=== PATIENT | male | born 1990 | race Caucasian/White ===

== ENCOUNTER 2016-07-19 17:59 | Emergency (ER) | payer OTHER ==
[~2016-07-19] VITALS: Ht 177.8 cm; Wt 122.5 kg
[~2016-07-19 17:59] MED LIST: ADV250INH INH; LEVA12INH INH; MOME50SP; XOPEAER INH
[2016-07-19] MEDS ORDERED: DEXT30SUSP PO (18:26)
[2016-07-19] MEDS ORDERED: IPRATROPIUM 0.5MG/ALBUTEROL 2.5MG INH SOL UD 3ML (DUONEB)(J7620) NEB ONE (19:00)
[2016-07-19] MEDS ORDERED: ALBUTEROL SULFATE 2.5 MG/0.5 ML INH NEB SOLN INH ONE (19:00)
[2016-07-19] MEDS ORDERED: NAPROXEN 250 MG TAB PO ONE (19:00)
[2016-07-19] MEDS ORDERED: NAPR500T PO (20:01)
[2016-07-19] MEDS ORDERED: ALBU17IN2 INH (20:01)
[2016-07-19 20:43] VITALS: BP 103/57
== END 2016-07-19 20:46 | disposition home or self-care (01) ==
LOC: M ED 19:00
DX: J20.9 Acute bronchitis, unspecified (principal); B34.9 Viral infection, unspecified; Z88.0 Allergy status to penicillin; Z88.1 Allergy status to other antibiotic agents; Z88.2 Allergy status to sulfonamides; Z91.011 Allergy to milk products

== ENCOUNTER 2016-11-30 18:33 | Emergency (ER) | payer OTHER ==
[~2016-11-30] VITALS: Ht 177.8 cm; Wt 113.6 kg
[~2016-11-30 18:33] MED LIST changes: +ALBU17IN2 INH; +DEXT30SUSP PO; +LEVAINH INH; +NAPR500T PO; -XOPEAER INH
[2016-11-30 20:50] VITALS: BP 160/89
== END 2016-11-30 20:53 | disposition home or self-care (01) ==
LOC: M ED 18:33
DX: J06.9 Acute upper respiratory infection, unspecified (principal)

== ENCOUNTER 2021-04-29 17:02 | Emergency (ER) | payer OTHER, BC ==
[~2021-04-29] VITALS: Ht 175.3 cm; Wt 117.3 kg
[~2021-04-29 17:02] MED LIST changes: -MOME50SP; +NAPR-837 PO; -NAPR500T PO; +NASO50SP3
[2021-04-29 19:57] VITALS: BP 146/89
== END 2021-04-29 19:56 | disposition home or self-care (01) ==
LOC: M ED 17:02
DX: I73.00 Raynaud's syndrome without gangrene (principal); J45.909 Unspecified asthma, uncomplicated; Z88.0 Allergy status to penicillin; Z88.1 Allergy status to other antibiotic agents; Z88.2 Allergy status to sulfonamides; Z91.018 Allergy to other foods; F17.210 Nicotine dependence, cigarettes, uncomplicated

== ENCOUNTER 2021-12-01 11:09 | Emergency (ER) | payer BC, OTHER ==
[~2021-12-01] VITALS: Ht 175.3 cm; Wt 123.5 kg
[2021-12-01 11:10] VITALS: BP 137/80
[2021-12-01] MEDS ORDERED: DOCUSATE SOD LIQ 100MG/10ML UDC PO ONE (14:15)
== END 2021-12-01 14:59 | disposition home or self-care (01) ==
LOC: M ED 11:09
DX: H61.23 Impacted cerumen, bilateral (principal); Z88.0 Allergy status to penicillin; Z88.1 Allergy status to other antibiotic agents; Z88.2 Allergy status to sulfonamides; Z91.018 Allergy to other foods; F17.200 Nicotine dependence, unspecified, uncomplicated

== ENCOUNTER → 2022-01-11 | Outpatient (CLI) | payer OTHER ==
[2022-01-11 18:09] LABS: HEMOGLOBIN A1c 5.2 %
[2022-01-11 18:16] LABS: BASO # 0.1 10^3/uL (0.0-0.2); EOS # 0.6 10^3/uL (0.0-0.5); EOS % 6.1 % (0.0-3.0); HEMATOCRIT 43.1 % (42.0-52.0); HEMOGLOBIN 14.1 g/dl (13.5-17.5); LYMPH # 2.4 10^3/uL (1.5-5.0); LYMPH % 24.7 % (24.0-44.0); MEAN CORPUSCULAR HEMOGLOBIN 29.4 pg (27.0-33.0); MEAN CORPUSCULAR HGB CONC 32.7 g/dl (32.0-36.5); MONO # 0.6 10^3/uL (0.0-0.8); MONO % 6.1 % (2.0-8.0); NEUTROPHILS # 5.9 10^3/uL (1.5-8.5); NEUTROPHILS % 61.8 % (36.0-66.0); PLATELET COUNT, AUTOMATED 278 10^3/uL (150-450); RED BLOOD COUNT 4.79 10^6/uL (4.30-6.10); WHITE BLOOD COUNT 9.5 10^3/uL (4.0-10.0)
[2022-01-11 18:47] LABS: ALBUMIN 4.2 GM/DL (3.2-5.2); ALT/SGPT 23 U/L (12-78); BILIRUBIN,TOTAL 0.4 MG/DL (0.2-1.0); BLOOD UREA NITROGEN 11 MG/DL (7-18); CALCIUM LEVEL 9.1 MG/DL (8.5-10.1); CARBON DIOXIDE LEVEL 30 MEQ/L (21-32); CHLORIDE LEVEL 106 MEQ/L (98-107); CHOLESTEROL LEVEL 158 MG/DL (<200); CHOLESTEROL RISK RATIO 2.821 (<5); CREATININE FOR GFR 1.05 MG/DL (0.70-1.30); FREE T4 0.88 NG/DL (0.76-1.46); GLOMERULAR FILTRATION RATE > 60.0 (>60); GLUCOSE, FASTING 91 MG/DL (70-100); HDL CHOLESTEROL 56 MG/DL (>40); LDL CHOLESTEROL 84 MG/DL (<100); NON-HDL-C 102 MG/DL; POTASSIUM SERUM 5.3 MEQ/L (3.5-5.1); SODIUM LEVEL 139 MEQ/L (136-145); TOTAL PROTEIN 8.2 GM/DL (6.4-8.2); TRIGLYCERIDES LEVEL 90 MG/DL (<150)
== END ==
LOC: M PLALAB 15:08
PROVIDERS: ATTEND Nurse Practitioner Family
DX: Z13.1 Encounter for screening for diabetes mellitus (principal)

== ENCOUNTER 2022-05-05 14:48 | Emergency (ER) | payer OTHER ==
[~2022-05-05] VITALS: Ht 175.3 cm; Wt 127.7 kg
[2022-05-05 14:49] VITALS: BP 142/84
== END 2022-05-05 18:15 | disposition home or self-care (01) ==
LOC: M ED 14:48
DX: T59.4X1A Toxic effect of chlorine gas, accidental (unintentional), initial encounter (principal); R07.89 Other chest pain; R09.89 Other specified symptoms and signs involving the circulatory and respiratory systems; R04.2 Hemoptysis; I73.00 Raynaud's syndrome without gangrene; J45.909 Unspecified asthma, uncomplicated; Z88.2 Allergy status to sulfonamides; Z88.1 Allergy status to other antibiotic agents; Z88.0 Allergy status to penicillin; Z98.890 Other specified postprocedural states

== ENCOUNTER 2022-09-03 15:37 | Emergency (ER) | payer OTHER ==
[~2022-09-03] VITALS: Ht 175.3 cm; Wt 134.8 kg
[2022-09-03] MEDS ORDERED: ACETAMINOPHEN 500 MG TAB PO ONE (18:20)
[2022-09-03] MEDS ORDERED: IBUP-1022 PO (19:10)
[2022-09-03] MEDS ORDERED: ONDA4TAB6 PO (19:10)
[2022-09-03 19:19] VITALS: BP 127/86; TEMP 98.3; O2SAT 100
== END 2022-09-03 19:24 | disposition home or self-care (01) ==
LOC: M ED 15:37
DX: S06.0X1A Concussion with loss of consciousness of 30 minutes or less, initial encounter (principal); W22.8XXA Striking against or struck by other objects, initial encounter; Y92.009 Unspecified place in unspecified non-institutional (private) residence as the place of occurrence of the external cause; Y93.89 Activity, other specified; Y99.8 Other external cause status; J45.909 Unspecified asthma, uncomplicated; F17.200 Nicotine dependence, unspecified, uncomplicated; Z88.2 Allergy status to sulfonamides; Z88.8 Allergy status to other drugs, medicaments and biological substances; Z88.1 Allergy status to other antibiotic agents